=== PATIENT | male | born 1995 | race Caucasian/White ===

== ENCOUNTER 2017-12-13 20:50 | Emergency (ER) | payer BC ==
[2017-12-13 21:36] LABS: ADD MAN DIFF? NO
[2017-12-13 21:39] LABS: BASO % 0 % (0-3); EOS # 0.2 x10^3/uL (0.0-0.7); EOS % 1 % (0-3); HEMATOCRIT 45.6 % (39.0-53.0); LYMPH # 0.6 x10^3/uL (1.0-4.8); LYMPH % 4 % (24-48); MEAN CORPUSCULAR HEMOGLOBIN 32 pg (25-35); MEAN CORPUSCULAR HGB CONC 35 g/dL (31-37); MEAN CORPUSCULAR VOLUME 92 fL (79-100); MONO # 0.7 x10^3/uL (0.0-1.1); MONO % 5 % (0-9); NEUT # 12.5 x10^3uL (1.8-7.7); NEUT % 90 % (31-73); PLATELET COUNT 217 x10^3/uL (140-400); RED BLOOD COUNT 4.96 x10^6/uL (4.30-5.70); RED CELL DISTRIBUTION WIDTH 13.1 % (11.5-14.5)
[2017-12-13 21:49] LABS: ANION GAP 11 (6-14); BLOOD UREA NITROGEN 13 mg/dL (8-26); BUN/CREATININE RATIO 13 (6-20); CALCIUM 9.4 mg/dL (8.5-10.1); CARBON DIOXIDE 25 mmol/L (21-32); CHLORIDE 103 mmol/L (98-107); GFR 95.3; GLUCOSE 103 mg/dL (70-99); POTASSIUM 3.8 mmol/L (3.5-5.1); SODIUM 139 mmol/L (136-145)
[2017-12-13 21:52] LABS: INFLUENZA A PATIENT NEGATIVE (NEGATIVE); INFLUENZA B PATIENT NEGATIVE (NEGATIVE); OBC FLU VALID
[2017-12-13 21:55] LABS: ALBUMIN 4.3 g/dL (3.4-5.0); ALK PHOS 103 U/L (46-116); ALT (SGPT) 37 U/L (16-63); AST (SGOT) 16 U/L (15-37); TOTAL BILIRUBIN 0.6 mg/dL (0.2-1.0); TOTAL PROTEIN 8.5 g/dL (6.4-8.2)
[2017-12-13] MEDS: methylPREDNISolone SOD SUCC PF 125 MG/2 ML VIAL. IV (22:00)
[2017-12-13] MEDS: IV NORMAL SALINE 1000ML BAG 1,000 ML IV (22:00)
[2017-12-13 22:12] LABS: % ATYL 1 % (0-0); % BANDS 10 % (0-9); % LYMPHS 1 % (24-48); % MONOS 4 % (0-10); % SEGS 84 % (35-66)
[2017-12-13 22:13] LABS: PLT ESTIMATE ADEQUATE (ADEQUATE)
[2017-12-13] MEDS: ALBUTEROL SULFATE 2.5 MG/3 ML NEBU. CONT NEB (22:18)
[2017-12-13] MEDS: IPRATROPIUM BROMIDE 0.5 MG/2.5 ML NEBU. NEB (22:18)
[2017-12-13] MEDS: KETOROLAC 30 MG/ML INJ. IV (23:54)
[2017-12-14] MEDS ORDERED: MORPHINE SULFATE 4 MG/ML DISP.SYRIN. IV (00:30)
== END 2017-12-14 00:53 | disposition home or self-care (01) ==
LOC: ER 12-14 00:53
DX: R09.1 Pleurisy (principal); J45.901 Unspecified asthma with (acute) exacerbation; J98.8 Other specified respiratory disorders; M43.6 Torticollis; R21 Rash and other nonspecific skin eruption; F17.200 Nicotine dependence, unspecified, uncomplicated
CPT/HCPCS: 36415; 71045; 80053; 85007; 85025; 87804; 87804-59; 93005; 94640; 94644; 96361; 96374; 96375; 99285-25; J1885; J2930; J7030; J7613; J7644